=== PATIENT | male | born 1955 | race Two or more races ===

== ENCOUNTER 2017-08-14 05:33 | Emergency (ER) | payer OTHER ==
[~2017-08-14] VITALS: Ht 170.2 cm; Wt 77.1 kg
[2017-08-14 05:40] VITALS: BP_SYST 162
--- NOTE | 2017-08-14 05:40 | NUR ---
Patient to ER bed 6 to gown for evaluation. Side rails up. Report given to ELLY ALEMAN AND ELLY MCADAMS.
--- NOTE | 2017-08-14 05:45 | NUR ---
Patient presented to ER c/o pelvic pain, patient states he is unable to urinate and symptoms started around 1am today. Patient states he had bladder stones removed 3-4 months ago. Patient is AAO x 4. No SOB or acute distress noted. Will continue to monitor.
--- NOTE | 2017-08-14 06:01 | NUR ---
#20 gauge angiocath placed to LFA. Use of asceptic technique. Opsite placed over site. Blood return noted. Blood for lab drawn from site. Flushed with 10 cc of normal saline. No evidence of infiltration noted. Patient tolerated well.
--- NOTE | 2017-08-14 06:06 | NUR ---
ER Dr. Jackson at bedside examining patient.
[2017-08-14] MEDS ORDERED: NACL 0.9% 1,000 ML IV ONE (06:15)
--- NOTE | 2017-08-14 06:17 | NUR ---
Patient ambulatory to restroom. Unable to provide urine sample at this time. Patient reports pain and urgency.
--- NOTE | 2017-08-14 06:44 | NUR ---
Patient off unit to radiology.
[2017-08-14 06:45] LABS: BASOPHILS % (AUTO) 0.4 % (0.0-2.0); EOSINOPHILS % (AUTO) 0.2 % (0.0-4.0); HEMOGLOBIN 15.4 g/dL (14.0-18.0); LYMPHOCYTES # (AUTO) 1.5 K/uL (1.0-5.5); LYMPHOCYTES % (AUTO) 15.2 % (20.5-51.5); MEAN CORPUSCULAR HEMOGLOBIN 29 pg (27-31); MEAN CORPUSCULAR HGB CONC 33 % (32-36); MEAN CORPUSCULAR VOLUME 87 fL (79.0-98.0); MONOCYTES # (AUTO) 0.5 K/uL (0.0-1.0); MONOCYTES % (AUTO) 4.8 % (1.7-9.3); NEUTROPHILS # (AUTO) 8.1 K/uL (1.8-7.7); NEUTROPHILS % (AUTO) 79.4 % (40.0-70.0); PLATELET COUNT (AUTO) 187 K/uL (130-430); RED BLOOD CELL COUNT(AUTO) 5.42 MIL/uL (4.2-6.2); RED CELL DISTRIBUTION WIDTH 13.4 % (9.0-15.0); WHITE BLOOD COUNT (AUTO) 10.1 K/uL (4.8-10.8)
[2017-08-14 07:09] LABS: CREATININE 0.62 mg/dL (0.55-1.30); POTASSIUM 3.5 mmol/L (3.5-5.1)
[2017-08-14 07:13] LABS: ALBUMIN 4.2 g/dL (3.4-4.8); TOTAL BILIRUBIN 0.6 mg/dL (0.0-1.0)
--- NOTE | 2017-08-14 07:20 | NUR ---
#16 FR In and Out catheter with use of sterile technique. Immediate return of 900 ml light yellow urine noted. Urine sample collected and sent to lab. Pt tolerated procedure well.
--- NOTE | 2017-08-14 07:22 | NUR ---
Patient VS stable. No SOB or acute distress noted. Report given to Sharan SANABRIA.
[2017-08-14] MEDS ORDERED: TAMSULOSIN HCL 0.4 MG CAP PO ONE (07:45)
[2017-08-14] MEDS ORDERED: ONDANSETRON 4 MG ODT TAB PO ONE (08:00)
--- NOTE | 2017-08-14 09:00 | NUR ---
Pt states that he needs to urinate and cannot, pacing around room. Verbal order from Dr. Pagan to place woodson catheter with leg bag. Pt agrees.
--- NOTE | 2017-08-14 09:30 | NUR ---
# 16 FR Rawls catheter with use of sterile technique. Immediate return of 325 cc light yellow urine noted. Bedside drainage bag placed below level of bladder. Pt tolerated procedure well. Leg urine bag applied to pt and pt given home care instructions as well as instructions to follow up with urologist.
[2017-08-14 09:44] VITALS: BP_SYST 141
--- NOTE | 2017-08-14 09:44 | NUR ---
Patient given written and verbal discharge instructions and verbalizes understanding. ER MD discussed with patient the results and treatment provided. Patient in stable condition. ID arm band removed. Rx of doxycyclin, flomax given. Patient educated on pain management and to follow up with PMD. Pain Scale 5/10 (tip of penis from catheter). Will follow up with Dr. Bentley urology. Opportunity for questions provided and answered.
== END 2017-08-14 09:44 | disposition home or self-care (01) ==
LOC: SED 05:33
DX: N40.0 Benign prostatic hyperplasia without lower urinary tract symptoms (principal); R33.9 Retention of urine, unspecified; F17.210 Nicotine dependence, cigarettes, uncomplicated; Z88.0 Allergy status to penicillin; Z91.018 Allergy to other foods
CPT/HCPCS: 36415; 51702; 74176; 80053; 83690; 85025; 96360; 99284; J7030; Q0162